=== PATIENT | male | born 1955 | race Two or more races ===

== ENCOUNTER 2020-07-09 06:07 | Emergency (ER) | payer MEDICARE, BC ==
[~2020-07-09] VITALS: Ht 195.6 cm; Wt 172.4 kg
[2020-07-09 06:11] VITALS: BP 0/0
== END 2020-07-09 11:30 ==
LOC: EDBD 06:07 → ER 06:07
DX: I46.9 Cardiac arrest, cause unspecified (principal); E78.5 Hyperlipidemia, unspecified; I10 Essential (primary) hypertension
CPT/HCPCS: 31500; 92950